=== PATIENT | male | born 1995 | race Caucasian/White ===

== ENCOUNTER 2019-12-24 00:31 | Emergency (ER) | payer OTHER ==
[~2019-12-24] VITALS: Ht 175 cm; Wt 61.0 kg
[2019-12-24] MEDS: TETRACAINE 0.5% OPHTH SOLN 4 ML BTL (SINGLE DOSE ONLY) OU ONE (00:42)
[2019-12-24] MEDS: FLUORESCEIN (FLUOR-I-STRIPS) 1 MG STRP OU ONE (00:42)
[2019-12-24] MEDS: TETRACAINE 0.5% OPHTH SOLN 4 ML BTL (SINGLE DOSE ONLY) ONE (00:42)
[2019-12-24] MEDS: FLUORESCEIN (FLUOR-I-STRIPS) 1 MG STRP ONE (00:50)
--- NOTE | 2019-12-24 00:54 | ED EENT ---
History of Present Illness General Chief Complaint: Eye Problems Stated Complaint: RT EYE INJURY Nursing Triage Note: Pt here after having a box hit him in the right eye. Source: patient Exam Limitations: no limitations History of Present Illness Date Seen by Provider: Dec 24, 2019 Time Seen by Provider: 00:43 Initial Comments patient presents to the ER by private conveyance with chief complaint that about half an hour prior to arrival he was putting boxes overhead and one slid off and struck him in the right eye causing some blurry vision and pain. No double vision. No loss of consciousness or syncope. No prior history of eye injury. No contacts, corrective lenses etc. No significant medical history. Allergies and Home Medications Allergies Coded Allergies: No Known Drug Allergies (Unverified , 12/24/19) Patient Home Medication List Home Medication List Reviewed: Yes Review of Systems Review of Systems Constitutional: No chills, No diaphoresis Eyes: Denies See HPI, Denies Blindness; Blurred Vision, Pain, Photophobia Ears: Denies Dizziness, Denies Pain Nose: denies clots, denies congestion Mouth: denies clots, denies pain, denies swelling Throat: denies pain, denies swelling Respiratory: No cough, No phlegm, No short of breath Cardiovascular: No chest pain, No edema Gastrointestinal: No abdominal pain, No nausea, No vomiting All Other Systems Reviewed Negative Unless Noted: Yes Past Dvjewsq-Vpniov-Qvhpid Hx Patient Social History Alcohol Use: Denies Use Recreational Drug Use: Yes Drug of Choice: thc Smoking Status: Current Everyday Smoker Type Used: Cigarettes 2nd Hand Smoke Exposure: Yes Recent Foreign Travel: No Contact w/Someone Who Travel: No Recent Infectious Disease Expo: No Recent Hopitalizations: No Seasonal Allergies Seasonal Allergies: No Past Medical History Surgeries: No Respiratory: No Cardiac: No Neurological: No Genitourinary: No Gastrointestinal: No Musculoskeletal: No Endocrine: No HEENT: No Cancer: No Psychosocial: No Integumentary: No Physical Exam Vital Signs Vital Signs - First Documented 12/24/19 00:35 Temp 36.1 Pulse 82 Resp 20 B/P (MAP) 129/75 (93) Pulse Ox 100 O2 Delivery Room Air Height, Weight, BMI Height: '" Weight: lbs. oz. 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, no motor/sensory deficits, alert, normal mood/affect, oriented x 3 Skin: normal color, warm/dry Progress/Results/Core Measures Results/Orders My Orders Orders - RIANNA HUGHES Tetracaine 0.5% Ophth Lola Sdv (Tetracai (12/24/19 00:45) Fluorescein Strips (Szzdw-D-Uyueit) (12/24/19 00:45) Fluorescein Strips (Qmita-O-Dxxrzh) (12/24/19 00:37) Tetracaine 0.5% Ophth Lola Sdv (Tetracai (12/24/19 00:37) Rx-Tobramycin Ophth Drops (Rx-Tobrex 0.3 (12/24/19 01:01) Medications Given in ED Current Medications Medications Dose Ordered Sig/Lucila Route Start Time Stop Time Status Last Admin Dose Admin Fluorescein Sodium 1 mg ONCE ONCE OU 12/24/19 00:45 12/24/19 00:46 DC 12/24/19 00:42 1 MG Tetracaine HCl 4 ml ONCE ONCE OU 12/24/19 00:45 12/24/19 00:46 DC 12/24/19 00:42 4 ML Vital Signs/I&O 12/24/19 12/24/19 00:35 01:18 Temp 36.1 Pulse 82 82 Resp 20 18 B/P (MAP) 129/75 (93) 129/75 Pulse Ox 100 100 O2 Delivery Room Air Room Air Blood Pressure Mean: 93 Progress Progress Note : Time: 00:55 Progress Note vision is 20/25 in the right affected eye, 20/13 left eye and 20/13 bilaterally. discussed case with Dr. Beth: left voicemail at [phone]. [phone]: discussed the case and he recommends TobraDex and follow up today in the clinic. Departure Impression Primary Impression: Corneal abrasion Qualified Codes: S05.01XA - Injury of conjunctiva and corneal abrasion without foreign body, right eye, initial encounter Disposition: HOME, SELF-CARE Condition: Stable Departure-Patient Inst. Decision time for Depature: 01:00 Referrals: [facility] [place] (PCP/Family) Primary Care Physician ANA BETH OD Patient Instructions: Corneal Abrasion (DC) Add. Discharge Instructions: Use saline eyedrops as often as necessary for relief of pain and dry eyes. Tylenol 1000 mg every 8 hours as necessary for pain. Ibuprofen 800 mg every 8 hours as necessary for pain. one drop of TobraDex in the affected eye 4 times a day. Call Dr. Beth for an appointment tomorrow morning first thing at [phone] All discharge instructions reviewed with patient and/or family. Voiced understanding. Work/School Note: Work Release Form Date Seen in the Emergency Department: Dec 24, 2019 Return to Work: Dec 25, 2019 Restrictions: Need Release from Doctor Copy Copies To 1: ANA BETH OD, TITUS J Dec 24, 2019 00:54
[2019-12-24] MEDS: RX-TOBRAMYCIN 0.3% OPHTH (TOBREX) SOLN 5 ML BTL OP STA (01:13)
[2019-12-24 01:18] VITALS: BP 129/75
== END 2019-12-24 01:20 | disposition home or self-care (01) ==
LOC: EDUNIT# 00:31 → ER 00:37
DX: S05.01XA Injury of conjunctiva and corneal abrasion without foreign body, right eye, initial encounter (principal); F17.210 Nicotine dependence, cigarettes, uncomplicated; W22.8XXA Striking against or struck by other objects, initial encounter
CPT/HCPCS: 99283

== ENCOUNTER 2020-04-16 23:52 | Emergency (ER) | payer SELFPAY ==
[~2020-04-16] VITALS: Ht 175 cm; Wt 61.0 kg
[2020-04-17 00:31] LABS: BILIRUBIN,URINE 1+ (NEGATIVE); CLARITY,URINE CLEAR; COLOR,URINE YELLOW; GLUCOSE, URINE (UA) NEGATIVE (NEGATIVE); KETONES,URINE 1+ (NEGATIVE); LEUKOCYTE ESTERASE ,URINE NEGATIVE (NEGATIVE); NITRITE,URINE NEGATIVE (NEGATIVE); PROTEIN,URINE 1+ (NEGATIVE)
[2020-04-17] MEDS ORDERED: KETOROLAC 30 MG/ML VIAL IVP STA (00:36)
[2020-04-17 00:44] LABS: BACTERIA,URINE FEW /HPF; HYALINE CASTS, URINE 0-2 /LPF; SQUAMOUS EPITHELIAL CELL,UR RARE /HPF; WBC,URINE 0-2 /HPF
[2020-04-17] MEDS ORDERED: LACTATED RINGERS 1,000 ML IV ONE (00:45)
[2020-04-17 00:47] LABS: AMPHETAMINE SCREEN, URINE NEGATIVE (NEGATIVE); BARBITURATE SCREEN URINE NEGATIVE (NEGATIVE); BENZODIAZEPINES SCREEN URINE NEGATIVE (NEGATIVE); CANNABINOID SCREEN, URINE POSITIVE (NEGATIVE); COCAINE SCREEN URINE NEGATIVE (NEGATIVE); METHADONE STAT NEGATIVE (NEGATIVE); METHAMPHETAMINE SCREEN URINE S NEGATIVE (NEGATIVE); OPIATE SCREEN URINE NEGATIVE (NEGATIVE); OXYCODONE STAT NEGATIVE (NEGATIVE); PROPOXYPHENE STAT NEGATIVE (NEGATIVE); TRICYCLIC ANTIDEPRESSANTS SCRE NEGATIVE (NEGATIVE)
[2020-04-17 01:03] LABS: BASOPHILS # (AUTO) 0.1 10^3/uL (0.0-0.1); BASOPHILS % (AUTO) 1 % (0-10); EOSINOPHILS # (AUTO) 0.4 10^3/uL (0.0-0.3); EOSINOPHILS % (AUTO) 4 % (0-10); HEMATOCRIT 44 % (40-54); HEMOGLOBIN 15.4 g/dL (13.3-17.7); LYMPHOCYTES # (AUTO) 2.5 10^3/uL (1.0-4.0); LYMPHOCYTES % (AUTO) 23 % (12-44); MEAN CORPUSCULAR HEMOGLOBIN 32 pg (25-34); MEAN CORPUSCULAR HGB CONC 35 g/dL (32-36); MEAN CORPUSCULAR VOLUME 91 fL (80-99); MEAN PLATELET VOLUME 10.6 fL (9.0-12.2); MONOCYTES % (AUTO) 9 % (0-12); NEUTROPHILS # (AUTO) 6.9 10^3/uL (1.8-7.8); NEUTROPHILS % (AUTO) 64 % (42-75); PLATELET COUNT 242 10^3/uL (130-400); WHITE BLOOD COUNT 10.8 10^3/uL (4.3-11.0)
[2020-04-17 01:11] LABS: ALBUMIN 4.2 GM/DL (3.2-4.5); CHLORIDE 101 MMOL/L (98-107); POTASSIUM 3.6 MMOL/L (3.6-5.0); SODIUM 136 MMOL/L (135-145)
[2020-04-17 01:12] LABS: AMYLASE 53 U/L (25-125); CALCIUM 8.7 MG/DL (8.5-10.1)
[2020-04-17 01:13] LABS: GLUCOSE 153 MG/DL (70-105); TOTAL PROTEIN 7.7 GM/DL (6.4-8.2)
[2020-04-17 01:14] LABS: CARBON DIOXIDE 22 MMOL/L (21-32)
[2020-04-17 01:15] LABS: BILIRUBIN,TOTAL 0.4 MG/DL (0.1-1.0)
[2020-04-17 01:17] LABS: ALKALINE PHOSPHATASE 69 U/L (40-136); CREATININE SERUM 0.85 MG/DL (0.60-1.30); GFR ESTIMATED > 60
[2020-04-17 01:18] LABS: BUN/CREATININE RATIO 12
[2020-04-17 01:20] LABS: ALANINE AMINOTRANSFERASE 17 U/L (0-55); LIPASE 6 U/L (8-78)
[2020-04-17] MEDS ORDERED: IOHEXOL 350 MG/ML 100 ML (OMNIPAQUE 350) VIAL IV ONE (01:30)
[2020-04-17] MEDS ORDERED: NS 100 ML (IVPB) BAG IV ONE (01:30)
[2020-04-17] MEDS ORDERED: CATHETER FLUSH 10 ML SYR IV PRN (01:30)
[2020-04-17] MEDS ORDERED: HOLD METFORMIN - RECEIVED CONTRAST 20 ML VIAL IV SCH (01:30)
[2020-04-17] MEDS ORDERED: KETO10TA PO (01:48)
[2020-04-17] MEDS ORDERED: ONDA4TAB11 PO (01:48)
[2020-04-17] MEDS ORDERED: HYOS0.1283 SL (01:48)
--- NOTE | 2020-04-17 01:48 | ED Abdominal Pain ---
General Chief Complaint: Abdominal/GI Problems Stated Complaint: ABD PAIN/CRAMPING Nursing Triage Note: TO ED VIA POV AND AMBULATORY TO ROOM 6 WITH C/O ABD CRAMPING X3 DAYS. DECREASED APPETITE AND PO INTAKE. DENIES N/V/D, SOA, COUGH, LOSS OF TASTE OR SMELL, FEVER, EXPOSURE TO COVID 19. Sepsis Screen: No Definite Risk Source of Information: Patient History of Present Illness Date Seen by Provider: Apr 17, 2020 Time Seen by Provider: 00:20 Initial Comments PT ARRIVES VIA POV FROM HOME--DROVE SELF HERE C/O ABDOMINAL PAIN FOR THE LAST 3-4 DAYS, GETTING WORSE PAIN IS IN EPIGASTRIC AREA, DOWN RIGHT SIDE OF ABDOMEN TO RLQ PAIN IS WORSE WITH MOVEMENTS AND WALKING NO NAUSEA/VOMITING, BUT STATES HE "CAN'T EAT OR DRINK" FOR THE LAST 3-4 DAYS DID EAT A LITTLE BIT JUST PRIOR TO ARRIVAL STATES HE HAS NOT BEEN URINATING MUCH USUAL NO DIARRHEA OR CONSTIPATION--HAD BM EARLIER TODAY, WAS A LITTLE LOOSE, BUT NOT DIARRHEA NO FEVER NO HISTORY OF SIMILAR NO PRIOR ABDOMINAL SURGERIES NO KNOWN SICK CONTACTS OR SUSPICIOUS FOODS HAS NOT TAKEN ANYTHING FOR SYMPTOMS NO COVID-19 SYMPTOMS OR KNOWN EXPOSURE TO COVID-19 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 PCP: NONE Allergies and Home Medications Allergies Coded Allergies: No Known Drug Allergies (Unverified , 12/24/19) Home Medications Hyoscyamine Sulfate 0.125 Mg Tab.subl, 0.25 MG SL Q4H Prescribed by: PARRIS SCHAEFFER on 04/17/20147 Ketorolac Tromethamine 10 Mg Tablet, 10 MG PO Q6H Prescribed by: PARRIS SCHAEFFER on 04/17/20147 Ondansetron 4 Mg Tab.rapdis, 4 MG PO Q4H Prescribed by: PARRIS SCHAEFFER on 04/17/20147 Patient Home Medication List Home Medication List Reviewed: Yes Review of Systems Review of Systems Constitutional: no symptoms reported; No chills, No diaphoresis, No fever EENTM: No Symptoms Reported Respiratory: No Symptoms Reported Cardiovascular: No Symptoms Reported Gastrointestinal: See HPI, Abdominal Pain; Denies Constipated, Denies Diarrhea, Denies Nausea; Poor Appetite, Poor Fluid Intake; Denies Vomiting Genitourinary: See HPI Musculoskeletal: no symptoms reported Skin: no symptoms reported Psychiatric/Neurological: No Symptoms Reported Endocrine: No Symptoms Reported Hematologic/Lymphatic: No Symptoms Reported Past Ynfujrm-Tsjhqw-Kjubbt Hx Past Med/Social Hx: Reviewed and Corrections made Patient Social History Alcohol Use: Denies Use Recreational Drug Use: Yes (THC) Drug of Choice: MARIJUANA Smoking Status: Current Everyday Smoker (1/2 PPD) Type Used: Cigarettes 2nd Hand Smoke Exposure: Yes Recent Foreign Travel: No Contact w/Someone Who Travel: No Recent Infectious Disease Expo: No Recent Hopitalizations: No Physical Abuse: No Sexual Abuse: No Mistreated: No Fear: No Seasonal Allergies Seasonal Allergies: No Past Medical History Surgeries: No Respiratory: No Cardiac: No Neurological: No Genitourinary: No Gastrointestinal: No Musculoskeletal: No Endocrine: No HEENT: No Cancer: No Psychosocial: No Integumentary: No Physical Exam Vital Signs Vital Signs - First Documented 04/17/20 04/17/20 00:05 01:54 Temp 36.7 Pulse 108 Resp 16 B/P (MAP) 132/80 (97) Pulse Ox 99 O2 Delivery Room Air Capillary Refill : Less Than 3 Seconds Height/Weight/BMI Height: '" Weight: lbs. oz. kg; 19.00 BMI Method: General Appearance: WD/WN, no apparent distress, thin HEENT: PERRL/EOMI, normal ENT inspection Neck: normal inspection Respiratory: normal breath sounds, no respiratory distress, no accessory muscle use Cardiovascular: regular rate, rhythm, no murmur Gastrointestinal: normal bowel sounds, soft, no organomegaly, no pulsatile mass; No distended, No guarding, No rebound; tenderness (EPIGASTRIC, RUQ, RLQ, RIGHT MID ABDOMEN TENDERNESS. ); No hernia, No mass; other (+ ROVSING'S. NEGATIVE HEEL TAP, NEGATIVE PSOAS, NEGATIVE OBTURATOR. WALKS UPRIGHT AND MOVES WITHOUT DIFFICULTY) Extremities: normal inspection Back: normal inspection, no CVA tenderness Neurologic/Psychiatric: no motor/sensory deficits, alert, normal mood/affect, oriented x 3 Skin: normal color (PT IS BLACK), warm/dry; No rash; tattoos/piercings (+ TATTOOS) Progress/Results/Core Measures Results/Orders Lab Results Laboratory Tests Test 04/17/20 00:05 04/17/20 00:50 Range/Units Urine Color YELLOW Urine Clarity CLEAR Urine pH 6.0 5-9 Urine Specific [place] >=1.030 1.016-1.022 Urine Protein 1+ H NEGATIVE Urine Glucose (UA) NEGATIVE NEGATIVE Urine Ketones 1+ H NEGATIVE Urine Nitrite NEGATIVE NEGATIVE Urine Bilirubin 1+ H NEGATIVE Urine Urobilinogen 1.0 < = 1.0 MG/DL Urine Leukocyte Esterase NEGATIVE NEGATIVE Urine RBC (Auto) NEGATIVE NEGATIVE Urine RBC 2-5 H /HPF Urine WBC 0-2 /HPF Urine Squamous Epithelial Cells RARE /HPF Urine Renal Epithelial Cells NONE /HPF Urine Crystals NONE /LPF Urine Bacteria FEW H /HPF Urine Casts PRESENT /LPF Urine Hyaline Casts 0-2 H /LPF Urine Mucus MODERATE H /LPF Urine Culture Indicated YES Urine Opiates Screen NEGATIVE NEGATIVE Urine Oxycodone Screen NEGATIVE NEGATIVE Urine Methadone Screen NEGATIVE NEGATIVE Urine Propoxyphene Screen NEGATIVE NEGATIVE Urine Barbiturates Screen NEGATIVE NEGATIVE Ur Tricyclic Antidepressants Screen NEGATIVE NEGATIVE Urine Phencyclidine Screen NEGATIVE NEGATIVE Urine Amphetamines Screen NEGATIVE NEGATIVE Urine Methamphetamines Screen NEGATIVE NEGATIVE Urine Benzodiazepines Screen NEGATIVE NEGATIVE Urine Cocaine Screen NEGATIVE NEGATIVE Urine Cannabinoids Screen POSITIVE H NEGATIVE White Blood Count 10.8 4.3-11.0 10^3/uL Red Blood Count 4.89 4.30-5.52 10^6/uL Hemoglobin 15.4 13.3-17.7 g/dL Hematocrit 44 40-54 % Mean Corpuscular Volume 91 80-99 fL Mean Corpuscular Hemoglobin 32 25-34 pg Mean Corpuscular Hemoglobin Concent 35 32-36 g/dL Red Cell Distribution Width 11.9 10.0-14.5 % Platelet Count 242 130-400 10^3/uL Mean Platelet Volume 10.6 9.0-12.2 fL Immature Granulocyte % (Auto) 0 % Neutrophils (%) (Auto) 64 42-75 % Lymphocytes (%) (Auto) 23 12-44 % Monocytes (%) (Auto) 9 0-12 % Eosinophils (%) (Auto) 4 0-10 % Basophils (%) (Auto) 1 0-10 % Neutrophils # (Auto) 6.9 1.8-7.8 10^3/uL Lymphocytes # (Auto) 2.5 1.0-4.0 10^3/uL Monocytes # (Auto) 1.0 0.0-1.0 10^3/uL Eosinophils # (Auto) 0.4 H 0.0-0.3 10^3/uL Basophils # (Auto) 0.1 0.0-0.1 10^3/uL Immature Granulocyte # (Auto) 0.0 0.0-0.1 10^3/uL Sodium Level 136 135-145 MMOL/L Potassium Level 3.6 3.6-5.0 MMOL/L Chloride Level 101 98-107 MMOL/L Carbon Dioxide Level 22 21-32 MMOL/L Anion Gap 13 5-14 MMOL/L Blood Urea Nitrogen 10 7-18 MG/DL Creatinine 0.85 0.60-1.30 MG/DL Estimat Glomerular Filtration Rate > 60 BUN/Creatinine Ratio 12 Glucose Level 153 H 70-105 MG/DL Calcium Level 8.7 8.5-10.1 MG/DL Corrected Calcium 8.5 8.5-10.1 MG/DL Total Bilirubin 0.4 0.1-1.0 MG/DL Aspartate Amino Transf (AST/SGOT) 16 5-34 U/L Alanine Aminotransferase (ALT/SGPT) 17 0-55 U/L Alkaline Phosphatase 69 40-136 U/L Total Protein 7.7 6.4-8.2 GM/DL Albumin 4.2 3.2-4.5 GM/DL Amylase Level 53 25-125 U/L Lipase 6 L 8-78 U/L My Orders Orders - PARRIS SCHAEFFER DO Drug Screen Stat (Urine) (04/17/20 00:26) Ua Culture If Indicated (04/17/20 00:26) Ed Iv/Invasive Line Start (04/17/20 00:36) Ct Abd/Pelv W (Appendicitis) (04/17/20 00:36) Acute Abd Series (04/17/20 00:36) Amylase (04/17/20 00:36) Cbc With Automated Diff (04/17/20 00:36) Comprehensive Metabolic Panel (04/17/20 00:36) Lipase (04/17/20 00:36) Ed Iv/Invasive Line Start (04/17/20 00:36) Lactated Ringers (Lr 1000 Ml Iv Solution (04/17/20 00:45) Ketorolac Injection (Toradol Injection) (04/17/20 00:36) Urine Culture (04/17/20 00:05) Iohexol Injection (Omnipaque 350 Mg/Ml 1 (04/17/20 01:30) Received Contrast (Hold Metformin- Contr (04/17/20 01:30) Sodium Chloride Flush (Catheter Flush Sy (04/17/20 01:30) Ns (Ivpb) (Sodium Chloride 0.9% Ivpb Bag (04/17/20 01:30) Medications Given in ED Current Medications Medications Dose Ordered Sig/Lucila Route Start Time Stop Time Status Last Admin Dose Admin Iohexol 100 ml ONCE ONCE IV 04/17/20 01:30 04/17/20 01:31 DC 04/17/20 01:29 100 ML Lactated Ringer's 1,000 ml @ 0 mls/hr Q0M ONCE IV 04/17/20 00:45 04/17/20 00:46 DC 04/17/20 00:53 999 MLS/HR Sodium Chloride 10 ml NEEDED PRN IV 04/17/20 01:30 04/17/20 01:55 DC 04/17/20 01:29 10 ML Sodium Chloride 100 ml ONCE ONCE IV 04/17/20 01:30 04/17/20 01:31 DC 04/17/20 01:29 80 ML Vital Signs/I&O 04/17/20 04/17/20 00:05 01:54 Temp 36.7 36.7 Pulse 108 78 Resp 16 16 B/P (MAP) 132/80 (97) 117/74 (97) Pulse Ox 99 O2 Delivery Room Air Room Air Blood Pressure Mean: 97 Progress Progress Note : Progress Note GIVEN IV FLUIDS AND TORADOL--PAIN IS GONE, AND STATES HE FEELS MUCH BETTER HEART RATE DOWN Diagnostic Imaging Comments ABDOMEN XRAYS--NO ACUTE PROCESS, MODERATE AMOUNT OF STOOL--PENDING RADIOLOGIST REVIEW CT ABDOMEN/PELVIS--NO EVIDENCE OF APPENDICITIS, MILD AMOUNT OF STOOL, ENLARGED SEMINAL VESICLES--PER [facility] VIA FAX AT [id number] Reviewed: Reviewed by Me Departure Impression Primary Impression: Abdominal pain Additional Impression: Dehydration Disposition: HOME, SELF-CARE Condition: Improved Departure-Patient Inst. Referrals: [facility] (PCP/Family) Primary Care Physician Patient Instructions: Severe Abdominal Pain, Adult (DC), Dehydration, Adult (DC) Add. Discharge Instructions: CLEAR LIQUIDS--WATER, BROTH, JELLO, GATORADE BRATS DIET--BANANAS, RICE, APPLESAUCE, TOAST, SALTINES RETURN TO ER IF YOUR SYMPTOMS WORSEN All discharge instructions reviewed with patient and/or family. Voiced understanding. Scripts Ondansetron (Ondansetron Odt) 4 Mg Tab.rapdis 4 MG PO Q4H for Nausea/Vomiting, #10 TAB Prov: PARRIS SCHAEFFER DO 04/17/20 Ketorolac Tromethamine (Ketorolac Tromethamine) 10 Mg Tablet 10 MG PO Q6H for Pain, #15 TAB Prov: PARRIS SCHAEFFER DO 04/17/20 Hyoscyamine Sulfate (Levsin-Sl) 0.125 Mg Tab.subl 0.25 MG SL Q4H, #20 TAB Prov: PARRIS SCHAEFFER DO 04/17/20 PARRIS SCHAEFFER DO Apr 17, 2020 01:48
[2020-04-17 01:54] VITALS: BP 117/74
--- NOTE | 2020-04-17 06:23 | Diagnostic Imaging Report ---
PROCEDURE: CT abdomen and pelvis with contrast, rule out appendicitis. TECHNIQUE: Multiple contiguous axial images were obtained through the abdomen and pelvis after the administration of intravenous contrast. All CT scans use one or more of the following dose optimizing techniques: automated exposure control, MA and/or KvP adjustment based on patient size and exam type or iterative reconstruction. INDICATION: Abdominal pain There are no prior CT examinations available for comparison. Reportedly, there is clinical concern regarding acute appendicitis. The appendix was not particularly well visualized, but the appendix does seem to partially filled with gas and not abnormally thickened. There are no indirect signs of acute appendicitis either. There is no pelvic mass or free fluid collection noted. However, both the prostate gland and seminal vesicles do seem somewhat prominent. The possibility of prostatitis should be considered. The urinary bladder is only partially filled and consequently difficult to assess. There is no obvious bladder abnormality evident. The liver, spleen, pancreas, adrenals, kidneys, gallbladder, aorta and inferior vena cava and portal vein show no sign of an acute abnormality. There is a 2.6 cm cyst associated with the left kidney. The stomach is partially filled with fluid and consequently difficult to assess. The lung bases are clear. The bone windows show no evidence for a fracture or for a destructive lesion. IMPRESSION: 1. The appendix is not particularly well visualized but there is no evidence for acute appendicitis at this time. 2. The prominence of the seminal vesicles and the prostate gland does raise a question of prostatitis. Clinical follow-up is recommended. 2. There is no acute abnormality of the abdomen or pelvis noted otherwise. 3. I agree with the [facility] interpretation of this exam. Dictated by: Dictated on workstation # [id number]
--- NOTE | 2020-04-17 06:24 | Diagnostic Imaging Report ---
EXAMINATION: Acute abdomen series at 1:07 AM INDICATION: Pain This study was performed in conjunction with the CT abdomen/pelvis exam. The accompanying erect PA chest shows the heart size to be within normal limits. The lungs are clear. There is no sign of a pneumoperitoneum. Supine and erect views of the abdomen were obtained. There is gas in both the large and small bowel in a nonspecific fashion. There is no evidence for a bowel obstruction. There is a moderate amount of fecal material within the colon. There is no mass or organomegaly appreciated. The osseous structures are intact. IMPRESSION: The bowel gas pattern is nonspecific. There is no acute abnormality identified. Dictated by: Dictated on workstation # [id number]
== END 2020-04-17 01:54 | disposition home or self-care (01) ==
LOC: EDUNIT# 23:52 → ER 23:55
DX: R10.13 Epigastric pain (principal); E86.0 Dehydration; F17.210 Nicotine dependence, cigarettes, uncomplicated
CPT/HCPCS: 36415; 74022; 74177; 80053; 80306; 81000; 82150; 83690; 85025; 87088